=== PATIENT | male | born 1985 | race Caucasian/White ===

== ENCOUNTER 2021-07-12 17:53 | Emergency (ER) | payer SELFPAY ==
[~2021-07-12 17:53] MED LIST: ABILIFY5 MG PO; ADDERALL 20 MG20 MG PO; FLEXERIL10 MG PO; NORCO 5/3251 EACH PO; PREDNISONE 20MG20 MG PO; PRISTIQ25 MG PO; VYVANSE70 MG PO
[2021-07-12 18:38] LABS: BASOPHIL 0.5 % (0-2); EOSINOPHIL 6.1 % (0-5); HCT 47.8 % (42.0-52.0); HGB 16.1 g/dl (13.2-18.0); LYMPHOCYTE 31.4 % (15-48); MCH 29.2 pg (25.0-31.0); MCHC 33.7 g/dL (32.0-36.0); MCV 86.6 fL (78.0-100.0); MONOCYTE 7.3 % (0-12); MPV 9.2 fL (6.0-9.5); NEUTROPHIL 54.4 % (41-80); NRBC 0; PLT 318 K/uL (150-400); RBC 5.52 M/uL (4.70-6.00); WBC 9.9 K/uL (4.0-10.5)
[2021-07-12 18:57] LABS: ALBUMIN 4.3 g/dL (3.4-5.0); BILIRUBIN - TOTAL 0.4 mg/dL (0.2-1.0); BUN/CREAT RATIO (CALC) 12.4 RATIO; CREATININE 0.89 mg/dL (0.67-1.17); GLOBULIN (CALCULATION) 3.8 g/dL; POTASSIUM 3.6 mmol/L (3.5-5.1); TOTAL PROTEIN 8.1 g/dL (6.4-8.2)
[2021-07-12 19:07] LABS: BILIRUBIN NEGATIVE (NEGATIVE); BLOOD NEGATIVE Ery/uL (NEGATIVE); CLARITY CLEAR (CLEAR); COLOR YELLOW (YELLOW); GLUCOSE (U) NORMAL (NORMAL); LEUKOCYTES NEGATIVE Leu/uL (NEGATIVE); NITRITE NEGATIVE (NEGATIVE); PROTEIN NEGATIVE (NEGATIVE); UROBILINOGEN 0.2 mg/dL (0.2-1.0)
[2021-07-12] MEDS ORDERED: NAPROXEN500 MG PO (20:33)
[2021-07-12] MEDS ORDERED: VIBRAMYCIN100 MG PO (20:33)
== END 2021-07-12 21:19 | disposition home or self-care (01) ==
LOC: FER 17:53
PROVIDERS: Emergency Medicine
DX: N50.82 Scrotal pain (principal); N50.812 Left testicular pain; F17.210 Nicotine dependence, cigarettes, uncomplicated
CPT/HCPCS: 36415; 76870; 80053; 81003; 85025; J1170; J1885; J2405; J7030